=== PATIENT | female | born 1965 | race Caucasian/White ===

== ENCOUNTER 2018-01-23 08:46 | Day surgery (SDC) | payer OTHER ==
[2018-01-16 14:26] VITALS: BMI 29.2
--- NOTE | 2018-01-23 10:19 | HP ---
DATE OF ADMISSION: 01/23/2018 HISTORY OF PRESENT ILLNESS: This is a 52-year-old woman admitted to the hospital for right groin exploration and repair of a chronically incarcerated right groin hernia. Prior imaging has suggested that this may represent a femoral hernia. No underlying GI, or respiratory complaints to suggest predisposition for hernia formation. PAST MEDICAL HISTORY: Essentially nil. No history of hypertension, heart disease, diabetes, or respiratory, renal or hepatic insufficiency. The patient does have scoliosis. PAST SURGICAL HISTORY: Nil. REGULAR MEDICATIONS: Sertraline, bupropion, levothyroxine. ALLERGIES: None known. SOCIAL HISTORY: Negative tobacco; the patient did smoke up until 2009. Negative alcohol. FAMILY HISTORY: Father with history of hypertension/. REVIEW OF SYSTEMS: Nil. PHYSICAL EXAMINATION: The patient was examined in erect and supine positions. Obvious palpable mass of the right groin measuring approximately 3 to 4 cm in size. The left groin is unremarkable, despite CT evidence of obvious hernia. IMPRESSION: Bilateral hernias. Right groin hernia incarcerated. Femoral versus inguinal hernia. PLAN: Right groin exploration and repair right groin hernia with or without mesh. The indications, alternatives, possible complications reviewed. Consent obtained. Edwin [id number] MTDD
[2018-01-23] MEDS ORDERED: BUPIVACAINE HCL/PF (5 MG/ML) 30 ML VIAL IJ ONE (11:34)
[2018-01-23] MEDS ORDERED: DEXAMETHASONE SOD PHOSPHATE/PF 10 MG/ML SDV ONE (11:34)
[2018-01-23] MEDS ORDERED: BUPIVACAINE HCL/PF 0.5% (5MG/ML) 10 ML VIAL ONE (11:34)
[2018-01-23] MEDS ORDERED: MIDAZOLAM HCL 2 MG/2 ML SINGLE DOSE VIAL ONE (11:34)
[2018-01-23] MEDS ORDERED: ROCURONIUM BROMIDE 50 MG/5 ML VIAL ONE (12:34)
[2018-01-23] MEDS ORDERED: PROPOFOL 20 ML ONE ×3 (12:34)
[2018-01-23] MEDS ORDERED: LIDOCAINE HCL/PF 2% SDV 5ML VIAL ONE (12:39)
[2018-01-23] MEDS ORDERED: ceFAZolin SODIUM 1 GM VIAL ONE (12:47)
[2018-01-23] MEDS ORDERED: ONDANSETRON 4 MG/2 ML VIAL ONE ×2 (12:47→14:06)
[2018-01-23] MEDS ORDERED: DEXAMETHASONE SOD PHOSPHATE 4 MG/1 ML VIAL ONE (12:47)
[2018-01-23] MEDS ORDERED: HYDROmorphone HCL/PF 1 MG/ML AMP ONE (12:55)
[2018-01-23] MEDS ORDERED: oxyCODONE HCL 5 MG TABLET PO PRN (14:17)
[2018-01-23] MEDS ORDERED: ONDANSETRON 4 MG/2 ML VIAL IVPUSH PRN (14:17)
[2018-01-23] MEDS ORDERED: LACTATED RINGERS SOLUTION 1,000 ML IV SCH (14:30)
--- NOTE | 2018-01-23 14:56 | OP ---
DATE OF OPERATION: 01/23/2018 PREOPERATIVE DIAGNOSIS: Right groin mass/incarcerated right groin hernia. POSTOPERATIVE DIAGNOSIS: Incarcerated right femoral hernia. PROCEDURE: Open reduction and repair of chronically incarcerated right femoral hernia with mesh/intermediate wound closure (8 cm). OPERATING SURGEON: John Lopez MD ROAD MECHANIC: aMrk Malcolm MD ANESTHESIA: Kiara Camargo MD (general) HISTORY: This is a 52-year-old woman who presents with a palpable abnormality of the right groin, whose imaging studies have suggested that this represents a femoral hernia. Patient presents for definitive management and repair. Indications, alternatives, possible complications reviewed. Consent obtained. PROCEDURE: With the patient in the supine position, under general anesthesia, the right groin was prepped and draped in usual sterile fashion using chlorhexidine. A standard right groin incision was made between right pubic tubercle and the right anterior iliac spine. The incision was deepened into the subcutaneous space. All identified vessels in the subcutaneous space were clamped, divided and ligated. The external oblique aponeurosis was ultimately reached. Stemming from the lateral aspect of the external oblique aponeurosis/inguinal ligament was the palpable abnormality. The palpable abnormality was freed from its attachment to the surrounding subcutaneous tissues at the level of the upper thigh and followed to its base, where it was found emanating from the femoral canal. The mass was large and could not be entirely reduced. The sac was opened, found to contain a portion of omentum and turbid fluid. The fluid was evacuated. The omentum was then reduced. The sac was excised and sent as specimen labeled "right femoral hernia sac." The sac was then closed using a continuous 3-0 Vicryl suture and ultimately reduced. A medium Bard plug was then placed in the femoral canal. A 6 o'clock, it was tacked to Gomez's ligament. At 3 o'clock it was tacked to the pubic tubercle. At 9 and 12 o'clock, it was tacked to the lateral and superior aspects of the external oblique aponeurosis/inguinal ligament. The plug was inspected and was circumferentially fixed. Subcutaneous tissue was then closed over the plug using interrupted 3-0 chromic sutures. After adequate hemostasis and irrigation, the wound was closed in layers. Marium's fascia was approximated using interrupted 3-0 chromic suture. Subcuticular layer was approximated with interrupted 4-0 Biosyn suture, skins were closed using 4-0 Biosyn in subcuticular space in continuous fashion. Patient tolerated the procedure. The procedure was terminated. Edwin [id number] MTDD
[2018-01-23] MEDS ORDERED: oxyCODONE HCL 5 MG TABLET ONE (15:48)
[2018-01-23 17:57] VITALS: BP 112/90; PULSE 70; TEMP 98
--- NOTE | 2018-01-28 17:40 | PATH ---
Surgical Pathology Report Patient Name: SAVANNA TRISTAN [facility]. Rec. #: [id number] /Age/Gender: 1965 (Age: 52) / F Account: [id number] Location: [facility] Taken: 01/23/2018 Received: 01/23/2018 Reported: 01/28/2018 Physicians: John Lopez M.D. Specimen(s) Received RIGHT FEMORAL HERNIA SAC Clinical History Right groin hernia Final Diagnosis FEMORAL HERNIA SAC, RIGHT, EXCISION: HERNIA SAC. Electronically Signed Marquita Todd M.D. Gross Description Received in formalin labeled "right femoral hernia sac," is a 6.2 x 4.1 x 1.7 cm valdivia-infante, saccular portion of fibromembranous tissue with attached fat, consistent with a hernia sac. Superintendent Service sections are submitted in one cassette. /01/24/2018 saudi01/24/2018
== END 2018-01-23 17:57 | disposition home or self-care (01) ==
LOC: FASU 08:46
PROVIDERS: ATTEND Surgery
PROC: 0YU70JZ Supplement Right Femoral Region with Synthetic Substitute, Open Approach (ICD-10-PCS; principal; 2018-01-23 12:52)
DX: K41.90 Unilateral femoral hernia, without obstruction or gangrene, not specified as recurrent (principal)
CPT/HCPCS: 84703; 88302-TC; 94760